=== PATIENT | female | born 1995 | race Caucasian/White ===

== ENCOUNTER 2021-03-01 15:12 | Outpatient (REF) | payer OTHER, SELFPAY ==
--- NOTE | ~2021-03-01 | CT_ITS ---
EXAMINATION: CT HEAD WITH/WITHOUT CONTRAST CLINICAL INFORMATION: Papilledema. COMPARISON: None TECHNIQUE: Contiguous axial imaging was performed from the skull base to vertex before and after the administration of 100 mL of Omnipaque [address] examination was performed using dose optimization techniques as appropriate, variously including the following: *Automated exposure control *Adjustment of mA and/or kV according to patient size (this includes techniques or standardized protocols for targeted exams where dose is matched to indication/reason for exam; i.e. extremities or head) *Use of iterative reconstruction technique DLP: 1402 mGy-cm FINDINGS: There is no evidence of acute intracranial hemorrhage or territorial infarction. No abnormal mass effect or midline shift is seen. Myles to white matter differentiation is well preserved. No extra-axial fluid collections are identified. There is no abnormal enhancement. There is a large developmental venous anomaly in the right cerebellar hemisphere. The ventricles are normal in size. There is no abnormal attenuation within the brain parenchyma. The osseous structures and soft tissues are normal. The mastoid air cells and visualized portions of the paranasal sinuses are well aerated. CT/CT head/brain wo/w con IMPRESSION: No acute intracranial pathology. Right cerebellar developmental venous anomaly.
[2021-03-01] MEDS: iohexoL 350 MG/ML 100 ML INFUS..BTL IV (15:55)
== END 2021-03-01 15:13 | disposition home or self-care (01) ==
LOC: HO.CT 15:12
PROVIDERS: PCP Nurse Practitioner Primary Care; Visit Provider Nurse Practitioner Primary Care
DX: H47.10 Unspecified papilledema (principal); R03.0 Elevated blood-pressure reading, without diagnosis of hypertension
CPT/HCPCS: 70470; Q9967

== ENCOUNTER 2021-04-25 13:02 | Outpatient (REF) | payer OTHER, SELFPAY ==
--- NOTE | ~2021-04-25 | MR_ITS ---
EXAMINATION: MR BRAIN WITHOUT AND WITH CONTRAST CLINICAL INFORMATION: Papilledema. COMPARISON: CT head from 03/01/2021. TECHNIQUE: MRI of the brain was obtained using routine sequences without and following the administration of 10 mL of Gadavist intravenous contrast. FINDINGS: No focal restricted diffusion is demonstrated to suggest acute or subacute cerebral ischemia. No evidence of acute or chronic hemorrhagic products on heme-sensitive imaging. Normal parenchymal signal characteristics. The ventricles are normal in morphology and size. No abnormal mass effect. No midline shift. Normal appearance of the pituitary gland. The suprasellar cistern appears widely patent. No abnormalities of the posterior fossa with normal appearance of the brainstem and cerebellum. The cerebellar tonsils are positioned at the level the foramen magnum. Normal arterial and venous vascular flow voids are present. Prominent development of venous anomaly within the right cerebellar hemisphere. No additional abnormal contrast enhancement. Normal, homogeneous marrow signal. No signal abnormalities within the paranasal sinuses or mastoids. There appears to be mild flattening of the right greater than left optic discs without associated enhancement. No additional MRI abnormalities of the orbits on limited evaluation. MR/MR head/brain wo/w con IMPRESSION: 1. No acute intracranial abnormalities. No abnormal intracranial enhancement. 2. There appears to be mild flattening of the right greater than left optic discs, correlating with reported papilledema. No additional demonstrated abnormalities of the orbits on limited evaluation.
== END 2021-04-25 13:03 | disposition home or self-care (01) ==
LOC: HO.MRI 13:02
PROVIDERS: PCP Nurse Practitioner Primary Care; Visit Provider Nurse Practitioner Primary Care
DX: H47.10 Unspecified papilledema (principal)
CPT/HCPCS: 70553; A9585

== ENCOUNTER 2021-10-16 09:11 | Day surgery (SDC) | payer OTHER, SELFPAY ==
--- NOTE | ~2021-10-16 | FL_ITS ---
EXAMINATION: XR LUMBAR PUNCTURE CLINICAL INFORMATION: Vision disturbance. COMPARISON: None TECHNIQUE: Following the explantation of the fluoroscopy-guided lumbar puncture procedure, benefits and risks, a written consent was obtained. Patient was placed prone on the fluoroscopy table and the site was selected along the L4-L5 disc level and marked on the skin. The marked area was cleaned and draped in the usual sterile manner with 2% chlorhexidine solution. 1% lidocaine was injected at the puncture site. A 22-gauge 5 inch long needle was inserted from the left para midline region intrathecally at the 4-5 disc level. After observing fluid return, patient was quickly placed in left lateral decubitus position. Through an opening CSF pressure was obtained. Subsequently fluid was collected in 4 test tubes. Post procedure stylet was reintroduced and needle was withdrawn. Complete hemostasis was achieved at puncture site. Simple Band-Aid was applied at the puncture site. Patient tolerated the procedure extremely well. FINDINGS: On AP and lateral image of the of lumbar spine there is a normal lumbar lordosis. The vertebral heights, alignment and disc heights are normal. The opening CSF pressure is elevated measuring 23 cm of water. Approximately 13 mL of clear CSF fluid was collected and was sent to the lab as per referring physician's orders. FLUOROSCOPY TIME: 0.5 minutes DOSE AREA PRODUCT: 3.859 uGy-m2 (microgray-meter squared) FL/FL guided lumbar puncture LP IMPRESSION: Successful ultrasound-guided L4-L5 lumbar puncture performed. There is elevated CSF pressure.
[2021-10-16 09:24] VITALS: BMI 35.6
[2021-10-16 09:43] LABS: MANUAL DIFF FLAG NO
[2021-10-16 09:48] LABS: Basophils Percent Auto 0.3 % (0-2); Eosinophils Absolute Auto 0.1 X10*3/uL (0.0-0.4); Eosinophils Percent Auto 1.5 % (0-4); Hematocrit 41.6 % (37.0-47.0); Hemoglobin 14.1 g/dl (12.0-16.0); Imm Gran Abs Auto 0.01 X10*3/uL (0.00-0.03); Imm Gran Pct Auto 0.2 % (0.0-0.4); Lymphocytes Absolute Auto 1.6 X10*3/uL (1.2-4.9); Mean Corpuscular HGB Conc 33.9 g/dl (31.0-35.0); Mean Corpuscular Hemoglobin 28.2 pg (27.0-33.0); Mean Corpuscular Volume 83.2 fL (80.0-98.0); Mean Platelet Volume 9.5 fL (9.4-12.3); Monocytes Absolute Auto 0.5 X10*3/uL (0.1-1.2); Monocytes Percent Auto 7.6 % (2-11); Neutrophils Absolute Auto 3.8 x10*3/uL (2.0-8.3); Neutrophils Percent Auto 63.4 % (45-73); Platelet Count 251 X10*3/uL (160-400); Red Cell Distribution Width 13.7 % (11.0-16.0)
[2021-10-16 09:53] LABS: UPreg QC Valid YES
[2021-10-16 09:55] LABS: Urine Pregnancy NEGATIVE (NEGATIVE)
[2021-10-16 09:58] LABS: INTERNATIONAL NORM RATIO 1.1 (0.9-1.1)
[2021-10-16 10:00] LABS: Partial Thromboplastin Time 35.3 SEC (24.1-38.0)
[2021-10-16 11:42] VITALS: BP 135/80; PULSE 62; RESP 18; TEMP 36.8; O2SAT 100
[2021-10-16 11:57] VITALS: BP 136/74; PULSE 65; RESP 18; O2SAT 100
[2021-10-16 12:24] LABS: CSF Appearance Clear, Colorless; CSF Tube # 3
[2021-10-16 12:27] VITALS: BP 147/78; PULSE 60; RESP 17; O2SAT 98
[2021-10-16 12:36] LABS: Glucose CSF 53 mg/dL; Total Protein CSF 17.6 mg/dL (15-45)
[2021-10-16 13:24] LABS: Appearance CSF CLEAR; CSF Tube # 4; Color CSF COLORLESS
[2021-10-16 13:25] LABS: CSF Monos 0 %; CSF Other Cells % 0 %; Lymphocytes CSF 100 %; Neutrophils CSF 0 %; Red Blood Cell CSF 1 MM*3; White Blood Cell CSF 2 MM*3
[2021-10-16 13:57] VITALS: BP 137/62; PULSE 76; RESP 17; TEMP 36.7; O2SAT 99
== END 2021-10-16 14:09 | disposition home or self-care (01) ==
PROVIDERS: Psychiatry & Neurology Neurology; Visit Provider Radiology Diagnostic Radiology
PROC: 009U3ZZ Drainage of Spinal Canal, Percutaneous Approach (ICD-10-PCS; CPT 62270; principal; 2021-10-16 11:00)
DX: G93.2 Benign intracranial hypertension (principal); H47.10 Unspecified papilledema; F41.9 Anxiety disorder, unspecified; F17.210 Nicotine dependence, cigarettes, uncomplicated
CPT/HCPCS: 36415; 62328; 81025; 82945; 84157; 85025; 85610; 85730; 87015; 87070; 87205; 89051

== ENCOUNTER 2021-10-17 12:00 | Emergency (ER) | payer OTHER, SELFPAY ==
[2021-10-17 12:35] VITALS: BP 141/89; PULSE 69; RESP 16; TEMP 36.6; O2SAT 100; BMI 35.4
--- NOTE | 2021-10-17 13:19 | ED.HA ---
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) Onset (ago): day(s) (last night) Onset description: gradually Location: diffuse Severity: severe Quality & Timing: throbbing, squeezing, constant and progressively worsening Exacerbating factors: sitting/standing Relieving factors: rest Context: other (started after lumbar puncture) Associated symptoms: nausea Treatments prior to arrival: ibuprofen Related Data Allergies Allergy/AdvReac Type Severity Reaction Status Date / Time No Known Allergies Allergy Verified 10/15/21 16:35 Review of Systems Review of Systems: Constitutional : No Fever, No Chills, No Fatigue ENT/Mouth : No sore throat, No Rhinorrhea Eyes: No Eye Pain, No Swelling, No Redness Cardiovascular : No Chest Pain, No SOB, No Dyspnea on Exertion Respiratory : No Cough, No Sputum Gastrointestinal : pos Nausea, No Vomiting, No Diarrhea, No abdominal Pain Genitourinary : No Dysuria, No Urinary Frequency, No Hematuria, Musculoskeletal : No joint pain, No Myalgias, No Joint Swelling Skin : No Skin Lesions, No rash Neuro : No Weakness, No Numbness, No Dizziness, positive Headache Psych : No Anxiety/Panic, No Depression Heme/Lymph: No Bruising, No Bleeding,No Lymphadenopathy Endocrine : No Polyuria, No Polydipsia All other systems reviewed and are negative [facility] Past Medical History Medical History Chronic headaches Intracranial hypertension No known health problems Social History Social History (Updated 10/17/21 @ 13:47 by Cata Fisher DO) Patient Tobacco Use Status: Never used Tobacco Advance Directives: No Advance Directives Information Provided: No Patient : No Physical Exam Vital Signs: Vital Signs: Last Vital Signs Temp 99.5 F 10/17/21 16:09 Pulse 88 10/17/21 16:09 Resp 20 10/17/21 16:09 BP 133/43 L 10/17/21 16:09 Pulse Ox 100 10/17/21 16:09 BMI result Body Mass Index 35.4 Appearance: Alert. Oriented X3. No acute distress. Anxious appears uncomfortable, pain with any form of sitting or standing Eyes: Pupils equal, round and reactive to light. ENT: Pharynx normal. Neck: Normal inspection. Neck supple. CVS: Normal heart rate and rhythm. Pulses normal. Respiratory: No respiratory distress. Breath sounds normal. Abdomen: Soft and non-tender. Skin: Skin warm and dry. Normal skin color. Normal skin turgor. Extremities: No lower extremity edema. No calf ttp Neuro: Oriented X 3. No motor deficit. No sensory deficit. no neuro deficits on my exam. Course Course Course Narrative: still with symptoms after IVF x 2L and medications will consult anesthesia message sent to anesthesia [phone] Dr. Javon bell and will touch base after OR case. Discussed with Dr. Alejandro will evaluate after OR case - Dr. Argenis bell anesthesia notes they likely cannot get to it today, attempt to call pain management to aid signed out to Dr. More 445pm. pain management states they are not available and now mention a [employer]ENTICE shunt as treatment which seems aggressive at this time, updated Dr. Alejandro - updated and signed out to Dr. More MDM - Headache MDM Narrative Medical decision making narrative: 26 yo female with first LP yesterday for intracranial HTN since then developed pain up spine to head any time she tries to move or sit up causing severe head pain it is tolerable lying flat and very much related to position changes. At this time will try IV medications and IVF x 2L if she fails will discuss with anesthesia about possible blood patch. Patient aware. She is [place] intact. Lab Data Result diagrams: 10/17/21 14:43 10/17/21 14:43 Labs: Lab Results 10/17/21 10/17/21 10/17/21 Range/Units 14:43 14:43 14:43 WBC 10.5 (4.8-10.8) X10*3/uL RBC 4.97 (4.20-5.50) X10*6/uL Hgb 14.1 (12.0-16.0) g/dl Hct 41.8 (37.0-47.0) % MCV 84.1 (80.0-98.0) fL MCH 28.4 (27.0-33.0) pg MCHC 33.7 (31.0-35.0) g/dl RDW 13.7 (11.0-16.0) % Plt Count 237 (160-400) X10*3/uL MPV 9.4 (9.4-12.3) fL Immature Gran % (Auto) 0.5 H (0.0-0.4) % Neut % (Auto) 87.7 H (45-73) % Lymph % (Auto) 7.1 L (20-40) % [place] % (Auto) 4.3 (2-11) % Eos % (Auto) 0.2 (0-4) % Baso % (Auto) 0.2 (0-2) % Lymph # (Auto) 0.7 L (1.2-4.9) X10*3/uL [place] # (Auto) 0.5 (0.1-1.2) X10*3/uL Eos # (Auto) 0.0 (0.0-0.4) X10*3/uL Baso # (Auto) 0.0 (0.0-0.2) X10*3/uL Abs Immat Gran (auto) 0.05 H (0.00-0.03) X10*3/uL Absolute Neuts (auto) 9.2 H (2.0-8.3) x10*3/uL Absolute Nucleated RBC 0.000 (0.0-0.012) X10*3/uL Nucleated RBC % (auto) 0.0 (0.0-0.2) /100WBC PT 12.7 (9.9-13.0) SEC INR 1.1 (0.9-1.1) Sodium 139 (135-145) mmol/L Potassium 4.2 (3.3-5.1) mmol/L Chloride 109 H (96-108) mmol/L Carbon Dioxide 23 (22-29) mmol/L Anion Gap 11 L (12-20) BUN 7 L (9-16) mg/dL Creatinine 0.80 (0.5-1.4) mg/dL Estim Creat Clear Calc 115.9 Estimated GFR > 60 Random Glucose 101 (60-115) mg/dL Calcium 9.1 (8.4-10.2) mg/dL Urine Color Urine Appearance Urine pH (5.0-8.0) Ur Specific [place] (1.005-1.025) Urine Protein (NEG-TRACE) MG/DL Urine Glucose (UA) (NEG) MG/DL Urine Ketones (NEG) MG/DL Urine Blood (NEG) Urine Nitrite (NEG) Ur Leukocyte Esterase (NEG) 10/17/21 Range/Units 16:36 WBC (4.8-10.8) X10*3/uL RBC (4.20-5.50) X10*6/uL Hgb (12.0-16.0) g/dl Hct (37.0-47.0) % MCV (80.0-98.0) fL MCH (27.0-33.0) pg MCHC (31.0-35.0) g/dl RDW (11.0-16.0) % Plt Count (160-400) X10*3/uL MPV (9.4-12.3) fL Immature Gran % (Auto) (0.0-0.4) % Neut % (Auto) (45-73) % Lymph % (Auto) (20-40) % [place] % (Auto) (2-11) % Eos % (Auto) (0-4) % Baso % (Auto) (0-2) % Lymph # (Auto) (1.2-4.9) X10*3/uL [place] # (Auto) (0.1-1.2) X10*3/uL Eos # (Auto) (0.0-0.4) X10*3/uL Baso # (Auto) (0.0-0.2) X10*3/uL Abs Immat Gran (auto) (0.00-0.03) X10*3/uL Absolute Neuts (auto) (2.0-8.3) x10*3/uL Absolute Nucleated RBC (0.0-0.012) X10*3/uL Nucleated RBC % (auto) (0.0-0.2) /100WBC PT (9.9-13.0) SEC INR (0.9-1.1) Sodium (135-145) mmol/L Potassium (3.3-5.1) mmol/L Chloride (96-108) mmol/L Carbon Dioxide (22-29) mmol/L Anion Gap (12-20) BUN (9-16) mg/dL Creatinine (0.5-1.4) mg/dL Estim Creat Clear Calc Estimated GFR Random Glucose (60-115) mg/dL Calcium (8.4-10.2) mg/dL Urine Color BROWN A Urine Appearance CLEAR Urine pH 6.0 (5.0-8.0) Ur Specific [place] 1.020 (1.005-1.025) Urine Protein 1+ H (NEG-TRACE) MG/DL Urine Glucose (UA) NEG (NEG) MG/DL Urine Ketones NEG (NEG) MG/DL Urine Blood 3+ H (NEG) Urine Nitrite NEG (NEG) Ur Leukocyte Esterase NEG (NEG) Discharge Plan Discharge Clinical Impression: Headache, post-lumbar puncture Patient Disposition: Still a Patient
[2021-10-17] MEDS: 0.9 % Sodium Chloride 1,000 ML 999 ML IVCONT ×2 (13:30→14:59)
[2021-10-17] MEDS: Metoclopramide HCl 10 MG/2 ML VIAL IVPUSH (13:31)
[2021-10-17] MEDS: diphenhydrAMINE HCL 50 MG/ML VIAL 25 MG IVPUSH (13:31)
[2021-10-17] MEDS: Butalb/Acetamin/Caff 50/325/40 TABLET 1 TAB PO (14:00)
[2021-10-17 14:48] LABS: MANUAL DIFF FLAG NO
[2021-10-17 14:51] LABS: Basophils Percent Auto 0.2 % (0-2); Eosinophils Percent Auto 0.2 % (0-4); Hematocrit 41.8 % (37.0-47.0); Hemoglobin 14.1 g/dl (12.0-16.0); Imm Gran Abs Auto 0.05 X10*3/uL (0.00-0.03); Imm Gran Pct Auto 0.5 % (0.0-0.4); Lymphocytes Absolute Auto 0.7 X10*3/uL (1.2-4.9); Lymphocytes Percent Auto 7.1 % (20-40); Mean Corpuscular HGB Conc 33.7 g/dl (31.0-35.0); Mean Corpuscular Hemoglobin 28.4 pg (27.0-33.0); Mean Corpuscular Volume 84.1 fL (80.0-98.0); Mean Platelet Volume 9.4 fL (9.4-12.3); Monocytes Absolute Auto 0.5 X10*3/uL (0.1-1.2); Monocytes Percent Auto 4.3 % (2-11); Neutrophils Absolute Auto 9.2 x10*3/uL (2.0-8.3); Neutrophils Percent Auto 87.7 % (45-73); Platelet Count 237 X10*3/uL (160-400); Red Blood Count 4.97 X10*6/uL (4.20-5.50); Red Cell Distribution Width 13.7 % (11.0-16.0); White Blood Count 10.5 X10*3/uL (4.8-10.8)
[2021-10-17 14:54] LABS: INTERNATIONAL NORM RATIO 1.1 (0.9-1.1); Prothrombin Time 12.7 SEC (9.9-13.0)
[2021-10-17 15:01] LABS: Anion Gap 11 (12-20); Blood Urea Nitrogen 7 mg/dL (9-16); Calcium 9.1 mg/dL (8.4-10.2); Carbon Dioxide 23 mmol/L (22-29); Chloride 109 mmol/L (96-108); Creatinine Clr Calc Pharmacy 115.9; Estimated Glomerular Filt Rate > 60; Glucose Random 101 mg/dL (60-115); Potassium 4.2 mmol/L (3.3-5.1); Sodium 139 mmol/L (135-145)
--- NOTE | 2021-10-17 15:12 | PC.NURSE ---
Pt comes in from home with complaints of MAGANA s/p lumbar puncture. Pain 10/10 made worse by light, denies N/V at this time. Pt is A&Ox3, LCA, no CP or SOB. IV established, call anderson with reach. Will continue to monitor.
[2021-10-17 16:09] VITALS: BP 133/43; PULSE 88; RESP 20; TEMP 37.5; O2SAT 100
[2021-10-17 16:47] LABS: Appearance Urine CLEAR; Color Urine BROWN; Glucose Urine UA NEG (NEG); Leukocyte Esterase Urine NEG (NEG); Nitrite Urine NEG (NEG); UACC Culture Trigger NO; Urine Blood 3+ (NEG); Urine Ketones NEG (NEG); Urine Protein 1+ MG/DL (NEG-TRACE)
[2021-10-17 16:58] LABS: Squamous Epithelial Cell Urine TRACE /LPF
[2021-10-17 16:59] LABS: Bacteria Urine 1+ /LPF
[2021-10-17] MEDS: 0.9 % Sodium Chloride 1,000 ML 999 ML IV (17:27)
[2021-10-17 18:00] VITALS: BP 111/61; PULSE 73; RESP 16; O2SAT 100
--- NOTE | 2021-10-17 18:54 | P.EN_ITS ---
Event Note Date of Service: 10/17/21 Event Note: PDPH after having LP by IR yesterday for benign intracranial hypertension. Patient tald me that she did'nt have that type of a positional headache before the LP. The pain score when supine is 3. I prefer to avoid doing blind blood patch on a patient with increased intracranial pressure. In addition, the blood patch has been shown to be more efficient when performed 48 hours after the beginning of symptoms. My recommendation are to stay flat in bed, pain medicat ions, hydration and coffein. If pain doesn't show any signs of improvement and a blood patch desired doing it by IR under fluoroscopy could be a safer option.
== END 2021-10-17 19:55 | disposition home or self-care (01) ==
PROVIDERS: Emergency Provider Emergency Medicine
DX: G97.1 Other reaction to spinal and lumbar puncture (principal); R51.0 Headache with orthostatic component, not elsewhere classified; R51.9 Headache, unspecified; G93.2 Benign intracranial hypertension; R11.0 Nausea
CPT/HCPCS: 36415; 80048; 81001; 85025; 85610; 96361; 96374; 96375; 99284; 99499; J1200; J2765

== ENCOUNTER 2021-10-20 10:58 | Emergency (ER) | payer OTHER, SELFPAY ==
[2021-10-20 11:02] VITALS: BP 138/89; BP 148/98; PULSE 78; PULSE 82; RESP 16; TEMP 37.2; O2SAT 99; BMI 35.4
--- NOTE | 2021-10-20 11:50 | ED_ITS ---
HPI - Headache General Chief Complaint: Headache <Autumn Black NP - Last Filed: 10/20/21 15:56> Stated Complaint: neck/head/eye pain <Autumn Black NP - Last Filed: 10/20/21 15:56> Time Seen by Provider: 10/20/21 11:13 <Autumn Black NP - Last Filed: 10/20/21 15:56> Source: patient and family <Autumn Black NP - Last Filed: 10/20/21 15:56> Mode of arrival: ambulatory <Autumn Black NP - Last Filed: 10/20/21 15:56> Limitations: no limitations <Autumn Black NP - Last Filed: 10/20/21 15:56> History of Present Illness HPI Narrative: 26 yo female here with persistent headache status post LP on October 16 for intracranial HTN under fluoroscopy. Patient tells me that prior to the LP she had an exam was concerning for papilledema with no associated headaches and was seen by neurologist who recommended a lumbar puncture. Patient tells me the morning after lumbar puncture she develops generalized headache which radiates down the neck into the back with some photophobia. Pain is worsened with position changes and standing up. When the patient stands she tells me she feels nauseous and has had intermittent episodes of vomiting. She was seen here on October 17 and received IV fluids and medications. She was evaluated by the anesthesiologist for a blood patch which at that time was not recommended. It was recommended patient continue supportive care and return for persistent symptoms for a blood patch under fluoroscopy. patient tells me since being home her pain has been persistent. It is not worsened. She has been taking intermittent Tylenol, Motrin and drinking caffeine and fluids. Admission was offered to the patient during her ER visit for IVF, IV medications but she declined this and went home. <Autumn Black NP - Last Filed: 10/20/21 15:56> Related Data Home Medications: Previous Rx's Medication Instructions Recorded hptbnqerjb-nlppikosjvnvn-vtnuvmny 1 cap PO Q4H PRN #10 cap 10/20/21 50 mg-300 mg-40 mg capsule (Fioricet) cxmgaeggkr-puuajhqcbxkgi-xwriizvz 1 cap PO Q8H PRN #14 cap 10/22/21 50 mg-300 mg-40 mg capsule (Fioricet) <Autumn Black NP - Last Filed: 10/20/21 15:56> Allergies/Adverse Reactions: Allergies Allergy/AdvReac Type Severity Reaction Status Date / Time No Known Allergies Allergy Verified 10/15/21 16:35 <Autumn Black NP - Last Filed: 10/20/21 15:56> Review of Systems Review of Systems: Yes all other systems are reviewed and are negative <Autumn Black NP - Last Filed: 10/20/21 15:56> Constitutional: Constitutional: Reports no additional constitutional complaints, Denies body ache(s), Denies chills, Denies fever(s), Reports headache(s) and Denies weakness <Autumn Black NP - Last Filed: 10/20/21 15:56> Eyes: Eyes: Reports no additional eye complaints, Denies change in vision and Reports photophobia (slight) <Autumn Black NP - Last Filed: 10/20/21 15:56> ENT: Reports system reviewed and no additional complaints, except as documented, Denies dizziness, Reports headache(s), Denies nasal congestion, Denies nasal discharge and Reports neck pain <Autumn Black NP - Last Filed: 10/20/21 15:56> Cardiovascular: Cardiovascular: Reports no additional cardiovascular complaints, Denies chest pain, Denies leg edema and Denies dyspnea <Autumn Black NP - Last Filed: 10/20/21 15:56> Respiratory: Respiratory: Reports no additional respiratory complaints, Denies cough and Denies dyspnea <Autumn Black NP - Last Filed: 10/20/21 15:56> Gastrointestinal: Gastrointestinal: Reports no additional gastrointestinal complaints, Denies abdominal pain, Denies diarrhea, Reports nausea and Reports vomiting <Autumn Black NP - Last Filed: 10/20/21 15:56> Genitourinary: Genitourinary: Reports no additional female genitourinary complaints and Denies urinary incontinence <Autumn Black NP - Last Filed: 10/20/21 15:56> Musculoskeletal: Musculoskeletal: Reports no additional musculoskeletal complaints, Reports back pain, Denies arthralgias, Denies joint swelling, Reports neck pain, Denies numbness and Denies tingling <Autumn Black NP - Last Filed: 10/20/21 15:56> Integumentary/Breasts: Skin/Breast: Reports system reviewed and no additional complaints, except as docu and Denies rash <Autumn Black NP - Last Filed: 10/20/21 15:56> Neurologic: Reports system reviewed and no additional complaints, except as documented, Denies Abnormal speech present, Denies dizziness, Reports headache(s), Denies numbness, Denies tingling and Denies weakness <Autumn Black NP - Last Filed: 10/20/21 15:56> [facility] Past Medical History Attestation statement: The following information was validated with the patient. <Autumn Black NP - Last Filed: 10/20/21 15:56> Source: old records reviewed and nursing notes reviewed <Autumn Black NP - Last Filed: 10/20/21 15:56> Medical History: Medical History Chronic headaches Intracranial hypertension No known health problems <Autumn Black NP - Last Filed: 10/20/21 15:56> Social History Social History: Social History Alcohol intake: current Alcohol intake frequency: a few times a week Patient Tobacco Use Status: Never used Tobacco Use of substances other than those prescribed or required for medical reasons: No Advance Directives: No Advance Directives Information Provided: No Patient : No <Autumn Black NP - Last Filed: 10/20/21 15:56> Physical Exam Vital Signs: Vital Signs: Last Vital Signs Temp 98.9 F 10/20/21 15:05 Pulse 86 10/20/21 15:05 Resp 16 10/20/21 15:05 BP 125/65 10/20/21 15:05 Pulse Ox 100 10/20/21 15:05 BMI result Body Mass Index 35.4 <Autumn Black NP - Last Filed: 10/20/21 15:56> Const: General: cooperative, healthy appearing, comfortable and no acute distress <Autumn Black NP - Last Filed: 10/20/21 15:56> Orientation/consciousness: patient oriented x3 <Autumn Black NP - Last Filed: 10/20/21 15:56> Limitations: no limitations <Autumn Black NP - Last Filed: 10/20/21 15:56> HENMT: Head: Yes normal to inspection <Autumn Black NP - Last Filed: 10/20/21 15:56> Ears: hearing grossly normal bilaterally and TM's normal bilaterally <Autumn Black NP - Last Filed: 10/20/21 15:56> General nose exam: Normal external nose present <Autumn Black NP - Last Filed: 10/20/21 15:56> Face and sinus: Yes normal facial exam <Autumn Black NP - Last Filed: 10/20/21 15:56> Mouth: Normal oral and palatal mucosa present <Autumn Black NP - Last Filed: 10/20/21 15:56> Throat: Yes posterior oropharynx normal, Yes tonsils normal and Yes uvula midline <Autumn Black NP - Last Filed: 10/20/21 15:56> Eyes: General: appearance normal, both eyes and all related structures <Autumn Black NP - Last Filed: 10/20/21 15:56> Visual Ballesteros: normal visual ballesteros by confrontation <Autumn Black NP - Last Filed: 10/20/21 15:56> Alignment and Position: alignment normal <Autumn Black NP - Last Filed: 10/20/21 15:56> Periorbital: periorbital findings normal <Autumn Black NP - Last Filed: 10/20/21 15:56> Eyelids: Yes eyelids normal <Autumn Black NP - Last Filed: 10/20/21 15:56> Conjunctivae: conjunctivae normal <Autumn Black NP - Last Filed: 10/20/21 15:56> Sclerae: sclerae normal <Autumn Black NP - Last Filed: 10/20/21 15:56> Corneas: corneas normal <Autumn Black NP - Last Filed: 10/20/21 15:56> Pupils: Equal, round and reactive pupils present <Autumn Black NP - Last Filed: 10/20/21 15:56> EOM: EOMs intact bilaterally <Autumn Black STRATEGIC MARKETING LEADER - Last Filed: 10/20/21 15:56> Direct Ophthalmoscopy: normal light reflex and photophobia (slight) <Autumn Black NP - Last Filed: 10/20/21 15:56> Neck: Neck: Yes normal visual inspection, Yes full ROM, Yes no lymphadenopathy and Yes no meningeal signs <Autumn Black NP - Last Filed: 10/20/21 15:56> Chest: Chest palpation & inspection: normal inspection of the chest <Autumn Black NP - Last Filed: 10/20/21 15:56> Resp: Effort & Inspection: normal respiratory effort <Autumn Black NP - Last Filed: 10/20/21 15:56> Auscultation: clear to auscultation bilaterally <Autumn Black NP - Last Filed: 10/20/21 15:56> Cardio: Rate: regular rate <Autumn Black NP - Last Filed: 10/20/21 15:56> Rhythm: regular rhythm <Autumn Black NP - Last Filed: 10/20/21 15:56> Peripheral pulses: Peripheral pulses 2+ throughout <Autumn Black NP - Last Filed: 10/20/21 15:56> GI: Inspection: Yes normal to inspection <Autumn Black NP - Last Filed: 10/20/21 15:56> Palpation (GI): Soft to palpation and nontender <Autumn Black NP - Last Filed: 10/20/21 15:56> Auscultation: normal bowel sounds <Autumn Black NP - Last Filed: 10/20/21 15:56> Back/Spine/Pelvis: Thoracic/Lumbar Spine: thoracic and lumbar spine normal to inspection <Autunm Black NP - Last Filed: 10/20/21 15:56> Skin: General skin exam: no rashes or lesions noted <Autumn Black NP - Last Filed: 10/20/21 15:56> Neuro: General: patient oriented x3, no meningeal signs, no focal motor deficits and normal sensation to monofilament <Autumn Black NP - Last Filed: 10/20/21 15:56> Cranial nerves: Yes CN's II-XII intact bilaterally, Yes Equal, round and reactive pupils present, Yes Bilaterally intact EOM present, Yes Nystagmus not present, Yes Normal facial strength present and Yes Midline tongue present <Autumn Black NP - Last Filed: 10/20/21 15:56> Cognition (Neuro): normal cognition <Autumn Black NP - Last Filed: 10/20/21 15:56> Speech: No Abnormal speech present <Autumn Black NP - Last Filed: 10/20/21 15:56> Motor exam (neuro): 5/5 motor strength present throughout <Autumn Black NP - Last Filed: 10/20/21 15:56> Sensory Exam: Normal double simultaneous stimulation for sensation <Autumn Black NP - Last Filed: 10/20/21 15:56> Coordination: stpmnb-um-fakr test normal and fwfl-cj-fdgc test normal <Autumn Black NP - Last Filed: 10/20/21 15:56> Extrem: General: Yes normal to inspection, Yes no pedal edema and Yes no calf tenderness <Autumn Black NP - Last Filed: 10/20/21 15:56> Course Course Course Narrative: 1350-pain is resolved. Patient was able to ambulate to the bathroom independently with no symptoms. She is tolerating p.o.. 2 L IV fluids infusing. Will re-evaluate post fluids and determine disposition 1500-pain is resolved. Patient was able to eat and drink with no difficulty. Plan for discharge home with follow-up on Friday with neurology. I did review worrisome signs and symptoms such as severe headache, vomiting, inability to tolerate p.o. and when to return to the emergency department. Comfortable discharge home. <Autumn Black NP - Last Filed: 10/20/21 15:56> MDM - Headache MDM Narrative Medical decision making narrative: 26-year-old female here with persistent headache, back and neck pain, photophobia, intermittent nausea and vomiting which are all worsened with position changes status post LP on October 16 for intracranial hemorrhage despite taking lzhb-gfk-zabbqhj Motrin and Tylenol. Seen here on October 17 and a blood patch was not recommended however was recommended for persistent symptoms under fluoroscopy. Patient declined admission for pain control. Neuro is intact. Will give IV fluids and IV medications and reassess -due to improving symptoms and resolution of headache we discussed the blood patch again. I discussed with the patient as her symptoms have been persistent and not worsening and she has improvement clinically today during her ER visit a blood patch would likely not be helpful. We discussed additionally an esthesiology recommended if blood patch was re-considered that it be done under fluoroscopy(IR) which is not available here today. Patient feels that she is feeling improved and would like to go home to follow-up with Neurology. We did discuss that she may return at any time for persistent or worsening symptoms. Patient is comfortable with this plan of care. <Autumn Black NP - Last Filed: 10/20/21 15:56> Medical Records Attestation: I reviewed the patient's medical records. <Autumn Black NP - Last Filed: 10/20/21 15:56> Lab Data Attestation: I reviewed the patient's lab results. <Autumn Black NP - Last Filed: 10/20/21 15:56> Discharge Plan Discharge Clinical Impression: Headache, post-lumbar puncture <Autumn Black NP - Last Filed: 10/20/21 15:56> Patient Disposition: Home, Self-Care <Autumn Black NP - Last Filed: 10/20/21 15:56> Instructions: Acute Headache (DC) <Autumn Black NP - Last Filed: 10/20/21 15:56> Additional Instructions: Follow-up with Dr Garcia on Friday Return for severe headache, inability to tolerate PO <Autumn Black NP - Last Filed: 10/20/21 15:56> Prescriptions: New jwypqkfavg-fhavgetgdkroa-fxbm [Fioricet] 50-300-40 mg capsule 1 cap PO Q4H PRN (Reason: pain) Qty: 10 0RF fmoimqphhl-swqotwnikxixm-dbqz [Fioricet] 50-300-40 mg capsule 1 cap PO Q8H PRN (Reason: pain) Qty: 14 1RF <Autumn Black NP - Last Filed: 10/20/21 15:56> Referrals: Phoebe Garcia MD [Physician] - 2 days <Autumn Black NP - Last Filed: 10/20/21 15:56> Stand Alone Forms: Work/School Release <Autumn Black NP - Last Filed: 10/20/21 15:56> Interventions: ED Discharge Assessment Last Done: 10/20/21 15:45 <Autumn Black NP - Last Filed: 10/20/21 15:56> Discharge Date/Time: 10/20/21 15:46 <Autumn Black NP - Last Filed: 10/20/21 15:56>
[2021-10-20] MEDS: Ketorolac Tromethamine 30 MG/ML VIAL IVPUSH (12:22)
[2021-10-20] MEDS: Metoclopramide HCl 10 MG/2 ML VIAL IVPUSH (12:22)
[2021-10-20] MEDS: Butalb/Acetamin/Caff 50/325/40 TABLET 2 TAB PO (12:22)
[2021-10-20] MEDS: diphenhydrAMINE HCL 50 MG/ML VIAL 25 MG IVPUSH (12:22)
[2021-10-20] MEDS: 0.9 % Sodium Chloride 1,000 ML 999 ML IV ×2 (12:30→13:33)
[2021-10-20 13:27] VITALS: BP 116/62; PULSE 79; RESP 16; O2SAT 100
[2021-10-20 15:05] VITALS: BP 125/65; PULSE 86; RESP 16; TEMP 37.2; O2SAT 100
== END 2021-10-20 15:46 | disposition home or self-care (01) ==
PROVIDERS: Emergency Provider Emergency Medicine
DX: G97.1 Other reaction to spinal and lumbar puncture (principal); R51.0 Headache with orthostatic component, not elsewhere classified
CPT/HCPCS: 96361; 96374; 96375; 99284; J1200; J1885; J2765

== ENCOUNTER 2022-08-23 09:18 | Day surgery (SDC) | payer OTHER, SELFPAY ==
[2022-08-23] VITALS (9 sets, daily range): BP systolic 102–124; BP diastolic 49–73; PULSE 62–77; RESP 16–18; TEMP 36.3–36.4; O2SAT 97–100; BMI 37.0
--- NOTE | ~2022-08-23 | FL_ITS ---
EXAMINATION: XR LUMBAR PUNCTURE CLINICAL INFORMATION: Pseudotumor cerebri. COMPARISON: Lumbar puncture 10/16/2021. TECHNIQUE: Following explaining fluoroscopy-guided lumbar puncture procedure, benefits and risk, a written consent was obtained. Patient was placed prone on fluoroscopy table and low back area was cleaned and draped in the usual sterile manner. 1% lidocaine was injected overlying the L3-L4 disc level at the skin. A 25-gauge needle was inserted from the skin intrathecally at the L3-L4 disc level. After observing fluid return, patient was placed in left lateral decubitus view and opening CSF pressure was obtained. Subsequently, fluid was collected in 2 chest tubes. Postprocedure stylet was reintroduced and needle removed. Complete hemostasis achieved at puncture site. Simple Band-Aid applied at puncture site. Patient tolerated the procedure extremely well. FINDINGS: On several images obtained through the lumbar spine, there is needle positioned at the L3-L4 disc level. The opening CSF pressure measured 11 cm of water. Approximately 3 mL of clear CSF fluid was collected in 2 test tubes and sent to lab for further analysis. FLUOROSCOPY TIME: 0.8 minutes DOSE AREA PRODUCT: 14.283 uGy-m2 (microgray-meter squared) FL/FL guided lumbar puncture LP IMPRESSION: Successful ultrasound-guided lumbar puncture performed.
[2022-08-23 09:50] LABS: UPreg QC Valid YES; Urine Pregnancy NEGATIVE (NEGATIVE)
[2022-08-23 09:54] LABS: Basophils Percent Auto 0.5 % (0-2); Eosinophils Absolute Auto 0.1 X10*3/uL (0.0-0.4); Eosinophils Percent Auto 2.2 % (0-4); Hematocrit 40.7 % (37.0-47.0); Hemoglobin 13.8 g/dl (12.0-16.0); Imm Gran Abs Auto 0.02 X10*3/uL (0.00-0.03); Imm Gran Pct Auto 0.3 % (0.0-0.4); Lymphocytes Absolute Auto 1.7 X10*3/uL (1.2-4.9); Lymphocytes Percent Auto 26.4 % (20-40); MANUAL DIFF FLAG NO; Mean Corpuscular HGB Conc 33.9 g/dl (31.0-35.0); Mean Corpuscular Hemoglobin 27.7 pg (27.0-33.0); Mean Corpuscular Volume 81.7 fL (80.0-98.0); Mean Platelet Volume 9.5 fL (9.4-12.3); Monocytes Absolute Auto 0.5 X10*3/uL (0.1-1.2); Monocytes Percent Auto 8.3 % (2-11); Neutrophils Percent Auto 62.3 % (45-73); Platelet Count 251 X10*3/uL (160-400); Red Blood Count 4.98 X10*6/uL (4.20-5.50); Red Cell Distribution Width 13.4 % (11.0-16.0); White Blood Count 6.5 X10*3/uL (4.8-10.8)
[2022-08-23 09:59] LABS: Prothrombin Time 11.6 SEC (10.0-13.1)
[2022-08-23 10:02] LABS: Partial Thromboplastin Time 30.5 SEC (26.0-36.4)
[2022-08-23 12:49] LABS: CSF Appearance Clear, Colorless; CSF Tube # 1
[2022-08-23 12:57] LABS: Total Protein CSF 24.1 mg/dL (15-45)
[2022-08-23 13:06] LABS: Appearance CSF CLEAR; CSF Monos 0 %; CSF Other Cells % 0 %; CSF Tube # 2; Color CSF COLORLESS; Lymphocytes CSF 0 %; Neutrophils CSF 0 %; Red Blood Cell CSF 28 MM*3; White Blood Cell CSF 0 MM*3
== END 2022-08-23 15:33 | disposition home or self-care (01) ==
PROVIDERS: Psychiatry & Neurology Neurology; PCP Nurse Practitioner Primary Care; Visit Provider Radiology Diagnostic Radiology
PROC: 009U3ZZ Drainage of Spinal Canal, Percutaneous Approach (ICD-10-PCS; CPT 62270; principal; 2022-08-23 11:00)
DX: G93.2 Benign intracranial hypertension (principal); F41.8 Other specified anxiety disorders; Z79.899 Other long term (current) drug therapy; F17.210 Nicotine dependence, cigarettes, uncomplicated
CPT/HCPCS: 36415; 62328; 81025; 84157; 85025; 85610; 85730; 87015; 87070; 87205; 89051

== ENCOUNTER 2025-04-11 15:57 | Outpatient (REF) | payer MEDICAID, SELFPAY ==
--- OUTSIDE RECORDS SUMMARY | 2021-03-01 | XMS_ITS | Encounter Summary ---
Author Organization [facility] Address [address] [place] [phone] Phone Care Team Providers Care Coal Loader Name Role Phone Unavailable Primary Care Provider Unavailabl e Encounter Details Date Type Department Care Team (Late st Contact Info) Description 03/01/2021 Hospital Encounter [facility] [address] [place] [id number] Apolinar Gimenez MD [address] [place] [address] [email or web address] Social History Tobacco Use Types Packs/Day Years Used Date Smoking Tobacco: Never Smokeless Tobacco: Never Comments:vaping Education Answer Date Recorded Are you interested in more education? Not on rudy e 12/13/2022 Are you concerned about learning? Not on file 12/13/2022 No 12/13/2022 No 12/13/2022 Digital Access Answer Date Recorded No 01/13/2023 No 01/13/2023 Reliable internet access at home? Not on file 01/13/2023 Device with a working camera? Not on file Comments Unknown Sex and Gender Information Value Date Recorded Sex Assigned at Not on file Legal Sex Female 8:49 PM EDT Gender Identity Not on file Sexual Orientation Not on file documented as of this encounter Plan of Treatment Not on file documented as of this encounter Procedures Procedure Name Priority Date/Time Associated Diagnosis Comments CT HEAD OUTSIDE (NO INTERPRETATION) Routine 03/01/2021 12:00 AM EDT documented in this encounter Results * CT Head Outside (No Interpretation) (03/01/2021 12:00 AM EDT) Narrative [facility] INTERFACES - 12/17/2022 12:29 PM EDT This study is for PACS storage only and not for interpretation. us Apolinar Gimenez MD IMG OUTSIDE IMAGING W/ OUT INTERPRETATION Final Result [facility]AC[facility] documented in this encounter Visit Diagnoses Not on filedocumented in this encounter Additional Source Comments The information contained in this document represents components of the legal health record. It is not the complete legal health record.[facility]
--- OUTSIDE RECORDS SUMMARY | 2021-04-25 | XMS_ITS | Encounter Summary ---
Author Organization [facility] Address [address] [place] [phone] Phone Care Team Providers Care Rough Rounder Machine Name Role Phone Unavailable Primary Care Provider Unavailabl e Encounter Details Date Type Department Care Team (Late st Contact Info) Description 04/25/2021 Hospital Encounter [facility] OUTSIDE [address] [place] [phone] Apolinar Gimenez MD [address] [place] [address] [email or web address] Social History Tobacco Use Types Packs/Day Years [...] Procedure Name Priority Date/Time Associated Diagnosis Comments MRI BRAIN OUTSIDE (NO INTERPRETATION) Routine 04/25/2021 12:00 AM EDT documented in this encounter Results * MRI Brain Outside (No Interpretation) (04/25/2021 12:00 AM EDT) Narrative [facility] INTERFACES [...] It is not the complete legal health record.[facility]
--- OUTSIDE RECORDS SUMMARY | 2025-04-11 15:15 | XMS_ITS | Encounter Summary ---
Author Organization [employer] Address [address] [place] [address] [address], [place] [address] Care Team Providers Care Hotel Lobby Concierge Name Role Phone Madhavi Colmenares Primary Care Provider [phone] Reason for Referral * Consultation (Routine) - Closed Specialty Diagnoses / Procedures Referred By Ashley vázquez Referred To Contact Obstetrics and Gynecology Diagnoses Positive test Madhavi Colmenares ANP [address] [place] [address] Phone: tel: fax: Referral ID Status Reason Start Date Expiration Date V isits Requested Visits Authorized [id number] Closed Specialty Services Required 04/11/2025 04/11/2026 1 1 Scheduling Instructions Please send OB referral to [facility]. Pt w/ h/o pseudotumor cerebri. Hcg quant pending. LMP 02/08/25. Encounter Details Date Type Department Care Team (Late st Contact Info) Description 04/11/2025 3:15 PM EDT Office Visit [facility] [address], [place] [phone] Madhavi Colmenares ANP [address], [place] [phone] Anxiety (Primary Dx); Positive test Social History Tobacco Use Types Packs/Day Years Used Date Smoking Tobacco: Never Smokeless Tobacco: Current Comments:Vape 5% nicotine Alcohol Use Standard Drinks/Week Comments Not Currently 0 (1 standard drink = 0.6 oz pur e alcohol) Comments No Sex and Gender Information Value Date Recorded Sex Assigned at Female 06/17/2022 10:16 AM EDT Legal Sex Female 10:16 AM EDT Gender Identity Female 06/17/2022 10:16 AM EDT Sexual Orientation Straight 06/17/2022 10 :16 AM EDT documented as of this encounter Last Filed Vital Signs Vital Sign Reading Time Taken Comments Blood Pressure 120/70 04/11/2025 3:29 PM EDT Pulse 81 04/11/2025 3:29 PM EDT Temperature 36.7 C (98.1 F) 04/11/2025 3:29 PM EDT Respiratory Rate 20 04/11/2025 3:29 PM EDT Oxygen Saturation 99% 04/11/2025 3:29 PM EDT Inhaled Oxygen Concentration - - Weight 98.6 kg (217 lb 6.4 oz) 04/11/2025 3:29 P M EDT Height 160 cm (5' 3 ) 04/11/2025 3:29 PM EDT Body Mass Index 38.51 04/11/2025 3:29 PM EDT documented in this encounter Progress Notes * RADHA Diaz - 04/11/2025 3:15 PM EDT Subjective Patient ID: Zaynab Saxena is a 29 y.o. female who presents for pt request. HPI PMH incl pseudotumor cerebri, closed fracture of distal end of left fibula with routine healing 09/22/23, anxiety, depression, AUD Non-smoker Last visit tele 09/24/23 LMP approx 02/08/25 Reports positive home test Happy about this. Would like to continue . Stopped taking sertraline after test positive. Anxiety has been worse in last week. Did drink etoh in month b/ positive test. Worried about impact this could have. Is taking prenatals. Non-smoker but does vape nicotine Review of Systems Constitutional: Negative for chills and fever. HENT: Negative for sore throat. Respiratory: Negative for cough and shortness of breath. Cardiovascular: Negative for chest pain. Gastrointestinal: Negative for constipation and diarrhea. Endocrine: Negative for polydipsia, polyphagia and polyuria. Genitourinary: Negative for dysuria. Objective BP 120/70 (BP Location: Left arm, Patient Position: Sitting, BP Cuff Size: Adult) Pulse81 Temp 98.1 ??F (36.7 ??C) (Oral) Resp 20 Ht 5' 3 (1.6 m) Wt 217 lb 6.4 oz (98.6 kg) LMP 02/08/2025 (Approximate) SpO2 99% BMI 38.51 kg/m?? Physical Exam Constitutional: General: She is not in acute distress. Appearance: Normal appearance. She is not ill-appearing. HENT: Head: Normocephalic and atraumatic. Eyes: General: No scleral icterus. Extraocular Movements: Extraocular movements intact. Pupils: Pupils are equal, round, and reactive to light. Cardiovascular: Rate and Rhythm: Normal rate. Pulmonary: Effort: Pulmonary effort is normal. No accessory muscle usage or respiratory distress. Neurological: Mental Status: She is alert and oriented to person, place, and time. Psychiatric: Mood and Affect: Mood normal. Behavior: Behavior normal. Assessment/Plan Diagnoses and all orders for this visit: Anxiety Re-start sertraline Positive test Avoid nsaids, smoking, etoh - hCG, Total, Quantitative; Future OB referral Would like to cont if confirmed Will send to [facility] given h/o pseudotumor cerebri documented in this encounter Plan of Treatment Scheduled Orders Name Type Priority Associated Diagnoses Orde r Schedule hCG, Total, Quantitative Lab Routine Positive test Expected: 04/11/2025 (Approximate), Expires: 04/11/2026 Scheduled Referrals Name Type Priority Associated Diagnoses Order Schedule Referral to Obstetrics / Gynecology Outpatient Referral Routine Positive test Expected: 04/11/2025 (Approximate), Expires: 04/11/2026 documented as of this encounter Visit Diagnoses Diagnosis Anxiety- Primary Anxiety state, unspecified Positive test examination or test, positive result documented in this encounter Care Teams Hotel Lobby Concierge Relationship Specialty Start Date End Date Madhavi Colmenares ANP [address] [place] [phone] PCP - General Family Medicine 07/03/20 documented as of this encounter
--- OUTSIDE RECORDS SUMMARY | 2025-04-11 17:52 | XMS_ITS | Clinical Summary ---
Author Organization [facility] Address [address] [place] [phone] Phone Care Team Providers Care Fire Control Technician B Name Role Phone Unknown, Unknown Primary Care Provider Unavai lable Allergies No known active allergies Active Problems Problem Noted Date Diagnosed Date Pseudotumor cerebri 11/28/2022 Family History Medical History Relation Comments Blindness Neg Hx Glaucoma Neg Hx Social History Tobacco Use Types Packs/Day Years Used Date Smoking Tobacco: Never Smokeless Tobacco: Never Tobacco Cessation:Counseling Given: Not Answered Comments:vaping Education Answer Date Recorded Are you [...] on file Sexual Orientation Not on file Last Filed Vital Signs Vital Sign Reading Time Taken Comments Blood Pressure 106/62 06/02/2015 3:43 AM EDT Pulse 82 06/02/2015 3:43 AM EDT Temperature - - Respiratory Rate - - Oxygen Saturation - - Inhaled Oxygen Concentration - - Weight - - Height - - Body Mass Index - - Plan of Treatment Health Maintenance Due Date Last Done Comments DEPRESSION SCREENING 2009 HEPATITIS C SCREENING 2015 HIV ONE-TIME SCREENING (18-6 5 YEARS) 2015 PAP SMEAR 2018 COVID-19 VACCINE (2023-2 5 season) 2024 Adult Td,Tdap Booster 07/27/2024 07/27/2014 , 12/01/2008 INFLUENZA VACCINE (#1) 2025 MENINGOCOCCAL VACCINES (ACWY) Aged Out 12/01/2008 No longer eligible based on patient's age to complete this topic SMOKING STATUS SCREENING (On ce After 26 Yrs) Completed 11/27/2022 HEPATITIS A VACCINES Aged Out No long er eligible based on patient's age to complete this topic HIB VACCINES Aged Out No longer eligi ble based on patient's age to complete this topic MENINGOCOCCAL VACCINES (B) Aged Out N o longer eligible based on patient's age to complete this topic PNEUMOCOCCAL VACCINES (0-49 years) Aged Out No longer eligible b ased on patient's age to complete this topic Medical Devices Not on file Care Teams Fire Control Technician B Relationship Specialty Start Date End Date Unknown, Unknown, PCP - General 07/24/22 Additional Source Comments The information contained in this document represents components of the legal health record. It is not the complete legal health record.[facility]
--- OUTSIDE RECORDS SUMMARY | 2025-04-11 17:52 | XMS_ITS | Clinical Summary ---
Author Organization [facility] Address [address] [place] [address] Care Team Providers Care Paralegal Instructor Name Role Phone Unavailable Primary Care Provider Unavailabl e Social History Tobacco Use Types Packs/Day Years Used Date Smoking Tobacco: Never Assessed Comments Unknown Sex and Gender Information Value Date Recorded Sex Assigned at Not on file Legal Sex Female 2:13 PM EST Gender Identity Not on file Sexual Orientation Not on file Plan of Treatment Health Maintenance Due Date Last Done Comments DTaP,Tdap,and Td Vaccines (1 - Tdap) 2016 Hepatitis B Vaccines (1 of 3 - 19+ 3-dose series) 2016 Cervical Cancer Screening: P ap Smear 2018 COVID-19 Vaccine (1 - 2023-2 5 season) 2024 Depression Screening 08/18/2024 Influenza Vaccine (#1) 2025 HIB Vaccines Aged Out No longer eligi ble based on patient's age to complete this topic HPV Vaccines Aged Out No longer eligi ble based on patient's age to complete this topic Hepatitis A Vaccines Aged Out No long er eligible based on patient's age to complete this topic IPV Vaccines Aged Out No longer eligi ble based on patient's age to complete this topic MMR Vaccines Aged Out No longer eligi ble based on patient's age to complete this topic Meningococcal ACWY Vaccine Aged Out N o longer eligible based on patient's age to complete this topic Meningococcal B Vaccine Aged Out No l onger eligible based on patient's age to complete this topic Pneumococcal Vaccine: Pediat rics (0 to 5 Years) and At-Risk Patients (6 to 49 Years) Aged Out No longer eligible b ased on patient's age to complete this topic RSV Immunization Patients Un dior 20 months Aged Out No longer eligible b ased on patient's age to complete this topic Varicella Vaccines Aged Out No longer eligible based on patient's age to complete this topic
--- OUTSIDE RECORDS SUMMARY | 2025-04-11 17:52 | XMS_ITS | Encounter Summary ---
Author Organization [employer] Address [address] [place] [address] [address] [place] [address] Care Team Providers Care Chain Link Fence Installer Name Role Phone Madhavi Colmenares Primary Care Provider [phone] Encounter Details Date Type Department Care Team (Latest Contact Info) Description 04/11/2025 Travel Social History Tobacco Use Types Packs/Day Years [...] AM EDT documented as of this encounter Plan of Treatment Not on file documented as of this encounter Visit Diagnoses Not on filedocumented in this encounter Care Teams Chain Link Fence Installer Relationship Specialty Start Date End Date Madhavi Colmenares ANP [address] [place] [id number] PCP - General Family Medicine 07/03/20 documented as of this encounter
--- OUTSIDE RECORDS SUMMARY | 2025-04-11 17:52 | XMS_ITS | Encounter Summary ---
Author Organization [employer] Address [address] [place] [address] [address], [place] [address] Care Team Providers Care Art Museum Docent Name Role Phone Madhavi Colmenares Primary Care Provider [phone] Reason for Visit * Reason Onset Date Comments Call Back Request 10/21/2023 Encounter Details Date Type Department Care Team ([facility] st Contact Info) Description 10/21/2023 Telephone [facility] [address] [place], [place] [phone] Madhavi Colmenares ANP [address] [place] [address] Call Back Request Social History Tobacco Use Types Packs/Day Years Used Date Smoking Tobacco: Never Smokeless Tobacco: Current Alcohol Use Standard Drinks/Week Comments Not Currently 0 (1 standard drink = 0.6 oz pur e alcohol) Comments No Sex and Gender Information Value Date Recorded Sex Assigned at Female 06/17/2022 10:16 AM EDT Legal Sex Female 10:16 AM EDT Gender Identity Female 06/17/2022 10:16 AM EDT Sexual Orientation Straight 06/17/2022 10 :16 AM EDT documented as of this encounter Miscellaneous Notes * Telephone Encounter - Valerio Monsalve - 10/21/2023 3:47 PM EST Tc from pt returning Phone call. States she received a call for a nurse advising to return call to [facility] nurse. Please contact pt @ [phone] documented in this encounter Plan of Treatment Not on file documented as of this encounter Visit Diagnoses Not on filedocumented in this encounter Care Teams Art Museum Docent Relationship Specialty Start Date End Date Madhavi Colmenares ANP [address] [place] [address] PCP - General Family Medicine 07/03/20 documented as of this encounter
--- OUTSIDE RECORDS SUMMARY | 2025-04-11 17:52 | XMS_ITS | Clinical Summary ---
Author Organization [employer] Address [address] [place] [address] [address] [place] [address] Care Team Providers Care Chiseler Head Name Role Phone Madhavi Colmenares Primary Care Provider [phone] Allergies No known active allergies Medications sertraline (Zoloft) 100 MG tabletIndicatio ns:Anxiety 1 tablet by mouth once daily 90 tablet 1 5 Active acetaZOLAMIDE (Diamox) 500 MG 12 hr capsule TAKE ONE CAPSULE EVERY MORNING AND TWO CAPSULES EVERY EVENING 3 04/11/20 Discontinu ed(Therapy completed) Active Problems Problem Noted Date Diagnosed Date Closed fracture of distal en d of left fibula with routine healing 09/24/2023 Overview (09/24/2023): 09/22/23, established w/ ortho Anxiety 09/24/2023 Overview (09/24/2023): Sertraline 100mg once daily. Tolerating well and w/ good effect. Will continue. Pseudotumor cerebri 11/28/2022 Benign intracranial hypertension 11/01/2021 Mild depression 11/01/2021 Encounters Date Type Department Care Team Description 04/11/2025 3:15 PM EDT Office Visit [facility] [address] [place] [phone] Madhavi Colmenares ANP Anxiety (Primary Dx); Positive test 04/11/2025 Travel from Last 3 Months Immunizations Immunization Administration Dates Next Due DTaP 09/18/1998, 8,1997,06/18 HPV, Quadrivalent 12/01/2009,01/31/2009,12/02/19 09 Hep A, ped/adol, 2 dose 07/27/2014 Hep B, Adolescent or Pediatric 06/18/2001,2000,1997 Hib (HbOC) 1997, 8,1997,06/18 IPV 03/25/2002, 9,1997,06/18 Influenza injectable quadriv alent preservative free 07/27/2014 Influenza, IIV3, injectable 09/03/2009 MMR 03/25/2002,08/18/2000 Meningococcal MCV4P [id number]-135 07/27/2014 Meningococcal MPSV4 12/01/2008 Tdap 07/27/2014,12/01/2008 Varicella 11/30/2008,08/26/2000 Social History Tobacco Use Types Packs/Day Years [...] Orientation Straight 06/17/2022 10 :16 AM EDT Last Filed Vital Signs Vital Sign Reading [...] Mass Index 38.51 04/11/2025 3:29 PM EDT Plan of Treatment Health Maintenance Due Date Last Done Comments Depression Screening 1997 Lipid Panel 1997 SDOH Screening 1997 Alcohol/Substance Use Screening 2009 Family Planning (PISQ) 2012 Hepatitis A Vaccines (2 of 2 - 2-dose series) 01/25/2015 07/27/2014 HPV/Cotest 01/05/2024 Pap Smear 01/05/2024 01/04/2021 COVID-19 Vaccine ( - season) 2024 DTaP/Tdap/Td Vaccines (7 - Td or Tdap) 07/27/2024 07/27/2014, 12/01/2008, 09/18/1998, Additional history exists Influenza Vaccine (#1) 2025 07/27/2014, 2009 Disability Screening 04/11/2026 04/11/2025 Tobacco Screening 04/11/2026 04/11/2025 Zoster Vaccines (1 of 2) 2047 RSV Patients and Patients Aged 60 years or older (1 - 1-dose 75+ series) 2072 HIB Vaccines Aged Out 1997, 08/1997, 1997, Additional history exists No longer eligible based on patient's age to complete this topic Hepatitis B Vaccines Completed 06/18/2001, 08/18/2000, 1997 IPV Vaccines Completed 03/25/2002, 08/1998, 1997, Additional history exists HPV Vaccines Completed 12/01/2009, 01/16, 12/01/2008 Meningococcal Vaccine Completed 07/27/2014, 009 HIV Screening Completed 01/04/2021 Hepatitis C Screening Completed 01/04/2021 Meningococcal B Vaccine Aged Out No l onger eligible based on patient's age to complete this topic Pneumococcal Vaccine: Pediatrics (0 to 5 Years) and At-Risk Patients (6 to 49) Years Aged Out No longer eligible based on patient's age to complete this topic RSV under 20 months Aged Out No longe r eligible based on patient's age to complete this topic Rotavirus Vaccines Aged Out No longer eligible based on patient's age to complete this topic Procedures Procedure Name Priority Date/Time Associated Diagnosis Comments THINPREP PAP Routine 01/04/2021 10:28 AM EDT ZZZ HISTORICAL HEPATITIS C AB W/REFL TO HCV RNA, QN, PCR Routine 01/04/2021 9:59 AM EDT HIV 1/2 ANTIGEN/ANTIBODY, FOURTH GENERATION W/RFL Routine 01/04/2021 9:59 AM EDT from Last 3 Months or Most Recently Relevant to Health Maintenance Results * THINPREP PAP (01/04/2021 10:28 AM EDT) Clinical Information: None given [facility] COMMENT SEE COMMENT [facility] Comment: EXPLANATORY NOTE: The Pap is a screening test for cervical cancer. It is not a diagnostic test and is subject to false negative and false positive results. It is most reliable when a satisfactory sample, regularly obtained, is submitted with relevant clinical findings and history, and when the Pap result is evaluated along with historic and current clinical information. Sr. Media Manager : SEE COMMENT [facility] Comment: NSS, CT(ASCP) CT screening location: [place] [address] Interpretation/R esult: Negative for intraepithelial lesion or malignancy. [facility] LMP: NONE [facility] Prev. BX: NONE [facility] Prev. PAP: NONE [facility] SOURCE: None given [facility] Statement Of Adequacy: SEE COMMENT [facility] Comment: Satisfactory for evaluation. Endocervical/transformation zone component present. Age and/or menstrual status not provided 01/04/2021 10:2 8 AM EDT us Missy Lezama CNM LAB PATHOLOGY ORDERABLES Final Result [facility] [address] * HEPATITIS C AB W/REFL TO HCV RNA, QN, PCR (01/04/2021 9:59 AM EDT) HEPATITIS C ANTIBODY NON-REACT FLORI NON-REACT FLORI [facility] INDEX 0.03 <1.00 [facility] Comment: HCV antibody was non-reactive. There is no laboratory evidence of HCV infection. In most cases, no further action is required. However, if recent HCV exposure is suspected, a test for HCV RNA (test code 07034) is suggested. For additional information please refer to http://[email or web address]/faq/DNZ15c8 (This link is being provided for informational/ educational purposes only.) 01/04/2021 9:59 AM EDT Missy RAIN HISTORICAL/NON ORDERABLE LABS Final Result Performing Organization Address [facility] de Phone Number [facility] [address] * HIV 1/2 ANTIGEN/ANTIBODY,FOURTH GENERATION W/RFL (01/04/2021 9:59 AM EDT) HIV-1/2 ANTIGEN AND ANTIBODIES, 4TH GENERATION W/ REFLEX NON-REACT FLORI NON-REACT FLORI [facility] Comment: HIV-1 antigen and HIV-1/HIV-2 antibodies were not detected. There is no laboratory evidence of HIV infection. PLEASE NOTE: This information has been disclosed to you from records whose confidentiality may be protected by state law. If your state requires such protection, then the state law prohibits you from making any further disclosure of the information without the specific written consent of the person to whom it pertains, or as otherwise permitted by law. A general authorization for the release of medical or other information is NOT sufficient for this purpose. For additional information please refer to [email or web address].[email or web address]/ALD420 (This link is being provided for informational/ educational purposes only.) The performance of this assay has not been clinically validated in patients less than 2 years old. 01/04/2021 9:59 AM EDT Missy Lezama [facility] LAB BLOOD ORDERABLES Brandi l Result Performing Organization Address [facility] Co de Phone Number [facility] [address] from Last 3 Months or Most Recently Relevant to Health Maintenance Insurance HSN PARTIAL Care Teams Chiseler Head Relationship Specialty Start Date End Date Madhavi Colmenares ANP [address] [place] [id number] PCP - General Family Medicine 07/03/20
--- OUTSIDE RECORDS SUMMARY | 2025-04-11 17:52 | XMS_ITS | Encounter Summary ---
Author Organization [employer] Address [address] [place] [id number] Care Team Providers Care Computer Programming Manager Name Role Phone Madhavi Colmenares Primary Care Provider [phone] Reason for Visit * Reason Onset Date Comments Med Refill 05/08/2023 Encounter Details Date Type Department Care Team (Late st Contact Info) Description 05/08/2023 Refill [facility] [address] [place] [address] Madhavi Colmenares ANP [address] [place] [address] Anxiety Social History Tobacco Use Types Packs/Day Years [...] as of this encounter Visit Diagnoses Diagnosis Anxiety Anxiety state, unspecified documented in this encounter Care Teams Computer Programming Manager Relationship Specialty Start Date End Date Madhavi Colmenares ANP [address] [place] [address] PCP - General Family Medicine 07/03/20 documented as of this encounter
== END 2025-04-11 15:58 | disposition home or self-care (01) ==
LOC: HO.HHCL 15:57
PROVIDERS: PCP Nurse Practitioner Primary Care; Visit Provider Nurse Practitioner Primary Care
DX: Z32.01 Encounter for pregnancy test, result positive (principal)
CPT/HCPCS: 36415; 84702